=== PATIENT | male | born 1950 | race Caucasian/White ===

== ENCOUNTER → 2025-03-29 | Outpatient (CLI) | payer MEDICARE, SELFPAY ==
--- NOTE | 2025-03-29 13:00 | PROSBIL_PTH ---
PATIENT: FABIANO BRYAN LOC: [facility] U#:[id number] AGE/SX: 74/M ROOM: RE03/29/[address]: Dr. Benjie Chew MD : 1950 BED: DIS: 03/29/2025 SPEC #: [id number] RECD: 03/29/25 14:57 STATUS: NAOMY REQ #: [id number] ROBERTA: 03/29/25 13:[address]: Benjie Chew DEPT: SURGICAL PATHOLOGY RECD BY: George Whitfield ENTERED: 03/30/25 09:37 SP TYPE: PROST BX MARION DR: TIMOTEO Diallo Tissues: A - PROSTATE RIGHT B - PROSTATE RIGHT C - PROSTATE RIGHT D - PROSTATE LEFT E - PROSTATE LEFT F - PROSTATE LEFT Procedures: PROSTATE BX HEADER OPERATION: Prostate biopsy PRE-OP DIAGNOSIS: Elevated PSA TISSUE SUBMITTED: A - Right apex, B - Right mid, C - Right base, D - Left apex, E - Left mid, F - Left base MICROSCOPIC DIAGNOSIS A. Prostate, right, apex, biopsy: - Focal atypical small acinar proliferation. B. Prostate, right, middle, biopsy: - Adenocarcinoma [place] 4+4=8 (cribriform pattern present), involving 2 of 2 cores and 15% of the specimen. C. Prostate, right, base, biopsy: - Adenocarcinoma [place] 4+3=7 (cribriform pattern present), involving 2 of 2 cores and 75% of the specimen. D. Prostate, left, apex, biopsy: - Focal atypical small acinar proliferation. - Mild acute inflammation. E. Prostate, left, middle, biopsy: - Focal atypical small acinar proliferation with mild acute inflammation. F. Prostate, left, base, biopsy: - Focal atypia with mild acute inflammation. MICROSCOPIC DESCRIPTION Slides are reviewed. GROSS DESCRIPTION Received in 6 formalin containers labeled with the patient's name and date of . Designated as: A. RA is a wynne tissue core, 1.3 cm in length by <0.1 cm in diameter. Entirely submitted in 1 cassette. B. RM are 2 wynne tissue cores, both 1.6 cm in length by <0.1 cm in diameter. Entirely submitted in 1 cassette. C. RB are 2 wynne tissue cores, both 1.5 cm in length by <0.1 cm in diameter. Entirely submitted in 1 cassette. D. LA is a wynne tissue core, 1.7 cm in length by <0.1 cm in diameter. Entirely submitted in 1 cassette. E. LM is a wynne tissue core, 1.4 cm in length by <0.1 cm in diameter. Entirely submitted in 1 cassette F. LB is a wynne tissue core, 1.4 cm in length by <0.1 cm in diameter. Entirely submitted in 1 cassette. OR 03/30/2025 CPT:06137e2
== END | disposition home or self-care (01) ==
LOC: LABSPEC 15:55
PROVIDERS: PCP Physician Assistant; Referring Provider Urology; Visit Provider Urology
DX: R97.20 Elevated prostate specific antigen [PSA] (principal)
CPT/HCPCS: 88305; G0416

== ENCOUNTER → 2025-04-06 | Outpatient (CLI) | payer MEDICARE, SELFPAY ==
--- NOTE | 2025-04-06 08:42 | NM_ITS ---
PROCEDURE: BONE SCAN WHOLE BODY 04/06/2025 REASON FOR EXAM: MALIGNANT NEOPLASNT OF PROSTATE TECHNIQUE: Delayed image whole-body bone scan after radiopharmaceutical administration RADIOPHARMACEUTICAL: 26.3 mCi Technetium-99m MDP IV COMPARISON: None provided FINDINGS: Prominent degenerative changes are seen throughout the spine, particularly the thoracolumbar spine, also with associated lumbar levoscoliosis. Degenerative changes are seen of the bilateral wrists and bilateral 1st carpal-metacarpal joints. Asymmetric right knee degenerative changes are seen. Degenerative changes are seen of the bilateral sternoclavicular joints. No findings are seen to suggest the presence of osseous metastatic disease. NM/Bone Scan Whole Body IMPRESSION: 1. No scintigraphic evidence of osseous metastatic disease. 2. Degenerative changes as described. Reading Location: [place] [address]
--- NOTE | 2025-04-06 08:42 | NM_ITS ---
PROCEDURE: BONE SCAN WHOLE BODY 04/06/2025 REASON FOR EXAM: MALIGNANT NEOPLASNT OF PROSTATE TECHNIQUE: Delayed image whole-body bone scan after radiopharmaceutical administration RADIOPHARMACEUTICAL: 26.3 mCi Technetium-99m MDP IV COMPARISON: None provided FINDINGS: Prominent degenerative changes are seen throughout the spine, particularly the thoracolumbar spine, also with associated lumbar levoscoliosis. Degenerative changes are seen of the bilateral wrists and bilateral 1st carpal-metacarpal joints. Asymmetric right knee degenerative changes are seen. Degenerative changes are seen of the bilateral sternoclavicular joints. No findings are seen to suggest the presence of osseous metastatic disease. NM/Bone Scan Whole Body IMPRESSION: 1. No scintigraphic evidence of osseous metastatic disease. 2. Degenerative changes as described. Reading Location: [place] [address]
== END | disposition home or self-care (01) ==
PROVIDERS: PCP Physician Assistant; Referring Provider Urology; Visit Provider Urology
DX: C61 Malignant neoplasm of prostate (principal)
CPT/HCPCS: 78306; A9503

== ENCOUNTER → 2025-04-11 | Outpatient (CLI) | payer MEDICARE, SELFPAY | END | disposition home or self-care (01) | LOC: CT 15:44 | PROVIDERS: PCP Physician Assistant; Referring Provider Urology; Visit Provider Urology | DX: C61 Malignant neoplasm of prostate (principal) | CPT/HCPCS: 74177; Q9967 ==

== ENCOUNTER 2025-05-11 15:07 | Observation (INO) | payer MEDICARE, SELFPAY ==
--- NOTE | 2025-04-29 09:21 | EKG12_ITS ---
Test Reason : PRE OP Blood Pressure : */* mmHG Vent. Rate : 60 BPM Atrial Rate : 60 BPM P-R Int : 176 ms QRS Dur : 74 ms QT Int : 416 ms P-R-T Axes : 70 60 42 degrees QTcB Int : 416 ms Normal sinus rhythm Minimal voltage criteria for LVH, may be normal variant Septal infarct , age undetermined Abnormal ECG Confirmed by KARINA REYNOLDS, SUDHAKAR ([id number]), advertising editor PRITI RIVERA ([id number]) on 05/02/2025 9:44:30 AM Referred By: Benjie Chew Confirmed By: SUDHAKAR COLLINS MD
[2025-04-29 09:55] LABS: Hematocrit 43.0 % (40-54); Hemoglobin 14.6 g/dL (13.0-16.5); Mean Corp Hgb Conc 34.0 g/dL (32-36); Mean Corpuscular Volume 86.2 fL (80-94); Mean Platelet Vol. 8.9 fl (6.2-12.0); Platelet Count 271 K/mm3 (150-450); RBC Distribution Width CV 16.1 % (11.6-14.6); RBC Distribution Width SD 50.5 fl (35.1-43.9); Red Blood Count 4.99 M/mm3 (4.6-6.2); White Blood Count 5.7 K/mm3 (4.4-11.0)
--- NOTE | 2025-04-29 18:35 | PAT.ANE_ITS ---
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 When Was Last Pacemaker Check QUESTION #4 FULL TEXT: You/Your Family Experience fever (hyperthermia) with Anesthesia Last Oral Intake Last Oral intake: Last Oral Intake NPO since Meds taken in AM with sips of water? Meds patient instructed to take am of surgery PONV PONV - child nutrition assistant: PONV - child nutrition assistant Female No 04/27/25 12:53 HX of Motion Sickness No 04/27/25 12:53 HX of N/V After Surgery No 04/27/25 12:53 Non-Smoker Yes 04/27/25 12:53 Duration of Surgery greater Yes 04/27/25 12:53 than 60 minutes Number of Risk Factors 2 04/27/25 12:53 PONV Score Moderate Risk 04/27/25 12:53 Respiratory Assessment Respiratory Assessment - child nutrition assistant: Respiratory Tract Infection Hx - child nutrition assistant Hx Respiratory Tract Infection No 04/27/25 12:53 STOP Sleep Apnea STOP Sleep Apnea - child nutrition assistant: STOP Sleep Apnea - child nutrition assistant Hx Hypertension No 04/27/25 12:53 Hx Sleep Apnea No 04/27/25 12:53 CPAP BIPAP Do you snore loudly (louder No 04/27/25 12:53 than talking or can be heard Do you often feel tired/ No 04/27/25 12:53 fatigued/ sleepy during daytime? Has anyone observed you stop No 04/27/25 12:53 breathing during sleep? STOP Results Negative 04/27/25 12:53 QUESTION #5 FULL TEXT : Do you snore loudly (louder than talking or can be heard through closed doors)? 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 Specify any problems Hx of Preganancy in last 3 N/A 04/27/25 12:53 Months Nurse Filling Out Transfusion VCHRISTIN 04/27/25 12:53 & Questions: Date: 04/27/25 04/27/25 12:53 Time: 12:54 04/27/25 12:53 Patient unable to answer at this time (ie. 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 Former smoker Leg cramps Home Medications ?Medication ?Instructions ?Recorded ?Last Taken ?Type ascorbic acid (vitamin C) 500 mg 1 g PO DAILY 04/27/25 Unknown History tablet (C-500) capsicum-garlic 200 mg-300 mg 1 cap PO DAILY 04/27/25 Unknown History capsule cholecalciferol (vitamin D3) 50 50 mcg PO DAILY Unknown History mcg (2,000 unit) capsule (Vitamin D3) cyanocobalamin-liver extract tablet 1 tab PO DAILY Unknown History ferrous sulfate 325 mg (65 mg 325 mg PO DAILY 04/27/25 Unknown History iron) tablet (FeroSul) magnesium carb,citrate,oxide 400 mg PO DAILY 04/27/25 Unknown History (Magnesium Complex) multivitamin (Daily Multi-Vitamin 1 tab PO DAILY 04/27 Unknown History tablet) rutin 500 mg tablet 500 mg PO DAILY 04/27/25 Unk nown History vitamin K2 90 mcg capsule 90 mcg PO DAILY 04/27/25 Unk nown History zinc gluconate 50 mg tablet 50 mg PO DAILY 04/27/25 Un known History Allergy/AdvReac Type Severity Reaction Status Date / Time aspirin (ASA) Allergy Severe Other Verified 04/27/25 12:40 ibuprofen Allergy Severe Other Verified 04/27/25 12:40 Surgical History (Updated 04/27/25 @ 12:52 by Melva Avalos) Hx of appendectomy Social History Smoking Status: Former smoker Audit: Pertinent Findings Pertinent Findings EKG Perinent findings: April 29, 2025. Normal sinus rhythm. Minimal voltage criteria for LVH. Septal infarct, age undetermined. Recommendation Anesthesia Recommendation Anesthesia recommendation: OPTIMIZED for anesthesia
[2025-05-11] VITALS (17 sets, daily range): BP systolic 140–184; BP diastolic 88–111; PULSE 49–83; RESP 16–20; TEMP 36.4–36.9; O2SAT 95–99; BMI 23.1
--- NOTE | 2025-05-11 09:43 | PCM.PRE.AN2 ---
ASA Classification* ASA Classification ASA Classification: 2 Assessment & Plan Anesthesia* Anesthesia Assessment Anesthesia Assessment: Discussed sedation and/or anesthesia options, risks, benefits, and alternatives with patient/parents/legal guardian/POA. Questions invited. The patient/parents/legal guardian/POA seems to understand and agrees to proceed with anesthesia plan. Reviewed the physical assessment, medical history, allergy history and patient home medications list prior to surgery/procedure/anesthetic and documented any changes. Performed airway and anesthesia risk assessments. Anesthesia Type Anesthesia Type: General Anesthesia Focused Assessment* Airway Assessment Mouth opens: >3 cm Mallampati Score: II Labs Anesthesia Preop lab: CBC WBC 5.7 K/mm3 (4.4-11.0) 04/29/25 09:35 04/29/25 RBC 4.99 M/mm3 (4.6-6.2) 04/29/25 09:35 04/29/25 Hgb 14.6 g/dL (13.0-16.5) 04/29/25 09:35 04/29/25 Hct 43.0 % (40-54) 04/29/25 09:35 04/29/25 Plt Count 271 K/mm3 (150-450) 04/29/25 09:35 04/29/25 CHEMISTRY COAG Pre-Assessment Diagnosis/Proposed Procedure Planned Operative Procedure(s): (B) ROBOTIC RADICAL PROSTATECTOMY, LYMPH NODE DISSECTION, BILATERAL INGENUAL HERNIA REPAIR Anesthesia History 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 When Was Last Pacemaker Check QUESTION #4 FULL TEXT: You/Your Family Experience fever (hyperthermia) with Anesthesia Last Oral Intake Last Oral intake: Last Oral Intake NPO since Meds taken in AM with sips of water? Meds patient instructed to take am of surgery PONV PONV - silk hanger: PONV - silk hanger Female No 07/23/25 12:53 HX of Motion Sickness No 04/27/25 12:53 HX of N/V After Surgery No 04/27/25 12:53 Non-Smoker Yes 04/27/25 12:53 Duration of Surgery greater Yes 04/27/25 12:53 than 60 minutes Number of Risk Factors 2 04/27/25 12:53 PONV Score Moderate Risk 04/27/25 12:53 Respiratory Assessment Respiratory Assessment - silk hanger: Respiratory Tract Infection Hx - silk hanger Hx Respiratory Tract Infection No 04/27/25 12:53 STOP Sleep Apnea STOP Sleep Apnea - silk hanger: STOP Sleep Apnea - silk hanger Hx Hypertension No 04/27/25 12:53 Hx Sleep Apnea No 04/27/25 12:53 CPAP BIPAP Do you snore loudly (louder No 04/27/25 12:53 than talking or can be heard Do you often feel tired/ No 04/27/25 12:53 fatigued/ sleepy during daytime? Has anyone observed you stop No 04/27/25 12:53 breathing during sleep? STOP Results Negative 04/27/25 12:53 QUESTION #5 FULL TEXT : Do you snore loudly (louder than talking or can be heard through closed doors)? 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 Specify any problems Hx of Preganancy in last 3 N/A 04/27/25 12:53 Months Nurse Filling Out Transfusion VCHRISTIN 04/27/25 12:53 & Questions: Date: 04/27/25 04/27/25 12:53 Time: 12:54 04/27/25 12:53 Patient unable to answer at this time (ie. confused, unrespo /Reproduction History /Reproductive History - silk hanger: /Reproductive Hx- silk hanger Hx Now No 04/27/25 12:53 Gestational Age (in weeks): EDC: Hx Hx Para Hx Section SAB No 04/27/25 12:53 Active Medications Active Medications: Current Medications Generic Name Dose Route Start Last Admin Trade Name Freq PRN Reason Stop Dose Admin Cefazolin Sodium 2 gm/ Sodium 110 mls @ 200 mls/hr 05/11/25 11:30 Chloride IV 05/11/25 12:02 INTRAOP ONE Lactated Ringer's 1,000 mls @ 15 mls/hr 05/11/25 09:45 IV .Q48H DANICA PFSH Medical History Wears hearing aid Wears dentures Wears glasses Anemia Easy bruising Excessive bleeding 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 neck Former smoker Leg cramps Home Medications ?Medication ?Instructions ?Recorded ?Last Taken ?Type ascorbic acid (vitamin C) 500 mg 1 g PO DAILY 04/27/25 Unknown History tablet (C-500) capsicum-garlic 200 mg-300 mg 1 cap PO DAILY 04/27/25 Unknown History capsule cholecalciferol (vitamin D3) 50 50 mcg PO DAILY 04/27/25 Unknown History mcg (2,000 unit) capsule (Vitamin D3) cyanocobalamin-liver extract tablet 1 tab PO DAILY 04/27/25 Unknown History ferrous sulfate 325 mg (65 mg 325 mg PO DAILY 04/27/25 Unknown History iron) tablet (FeroSul) magnesium carb,citrate,oxide 400 mg PO DAILY 04/27/25 Unknown History (Magnesium Complex) multivitamin (Daily Multi-Vitamin 1 tab PO DAILY 04/27/25 Unknown History tablet) rutin 500 mg tablet 500 mg PO DAILY 04/27/25 Unknown History vitamin K2 90 mcg capsule 90 mcg PO DAILY 04/27/25 Unknown History zinc gluconate 50 mg tablet 50 mg PO DAILY 04/27/25 Unknown History Allergy/AdvReac Type Severity Reaction Status Date / Time aspirin (ASA) Allergy Severe Other Verified 04/27/25 12:40 ibuprofen Allergy Severe Other Verified 04/27/25 12:40 Surgical History Hx of appendectomy Social History Smoking Status: Former smoker Review of Systems (Anesthesia) ROS Narrative System reviewed and no additional complaints, except as documented.
[2025-05-11] MEDS: Lactated Ringers 1,000 ML 15 ML IV ×2 (10:35→16:32)
--- NOTE | 2025-05-11 11:30 | PROST_PTH ---
PATIENT: FABIANO BRYAN LOC: [facility] U#:[id number] AGE/SX: 74/M ROOM: [id number] RE05/11/[address]: Dr. Benjie Chew MD : 1950 BED: 1 DIS: 05/12/2025 SPEC #: [id number] RECD: 05/11/25 16:53 STATUS: NAOMY SAEED #: [id number] ROBERTA: 05/11/25 11:[address]: Benjie Chew DEPT: SURGICAL PATHOLOGY RECD BY: George Whitfield ENTERED: 05/12/25 09:49 SP TYPE: PROSTATE OTHR DR: MD Rich Allen PA Tissues: A - Soft tissues, NOS B - Lymph node, NOS C - Lymph node, NOS D - Prostate, NOS Procedures: Surgery Specimen Level IV Surgery Specimen Level HEADER OPERATION: Robotic radical prostatectomy, lymph node dissection PRE-OP DIAGNOSIS: Benign prostatic hyperplasia with lower urinary tract symptoms, elevated PSA, nodular prostate with lower urinary tract symptoms TISSUE SUBMITTED: A- Fat over prostate, B- Left pelvic lymph node, C- Right pelvic lymph node, D- Prostate MICROSCOPIC DIAGNOSIS A. Fat, prostate, radical prostatectomy and bilateral pelvic lymphadenectomies: - Benign fibroadipose tissue B. Left pelvic lymph nodes: * Two benign lymph nodes (0/2) C. Right pelvic lymph node: * One benign lymph node (0/1) D. Prostate and bilateral seminal vesicles and vas deferens: * Prostatic adenocarcinoma (See COMMENT for SYNOPTIC REPORT FOR CARCINOMA OF THE PROSTATE) COMMENT SYNOPTIC REPORT FOR CARCINOMA OF THE PROSTATE: Procedure: RADICAL PROSTATECTOMY Histologic type: ACINAR Deana score: 4 + 4 = 8 Grade group (1-5): 4 % pattern 4 in [place] 3+4=7 (na=not applicable): na % tumor: 26% Tumor extent (n=no, y=yes, na=not applicable): Extraprostatic extension (f=focal, m=multifocal): m Location of extraprostatic extension: right seminal vesicle insertion and vas deferens, left seminal vesicle Microscopic invasion of bladder neck: n Seminal vesicle muscle wall invasion: y Margins (n=negative, p=positive, na=not applicable): p Distance of tumor to closest margin (cm): na Longest contiguous positive margin (cm): 0.4 cm (mid right posterior) Positive margin location (apex, bladder neck, mid): right apex, right posterior mid, right lateral mid, right lateral base, and right posterior base Regional lymph nodes (na=not applicable): Number examined: 3 Number positive: 0 Additional findings (lymphovascular invasion, therapy effect): NONE pTNM: pT3b pN0 Comments: NONE Grade Group Definitions 1=[place] 5-6, 2=[place] 3+4=7; 3=Deana 4+3=7, 4=Deana 8; 5=[place] 9-10 Pathologic Staging Definitions (pTNM): Primary Tumor (pT) pT2: Organ confined pT3a: Extraprostatic extension (focal is <1 high power field in 1-2 slides, multifocal is more) or Microscopic invasion of bladder neck (in thick muscle, no adjacent non-neoplastic glands) pT3b: Seminal vesicle muscle wall invasion pT4: Invasion of external sphincter, rectum, bladder, levator muscles or pelvic wall Regional Lymph Nodes (pN) (periprostatic, pelvic, hypogastric, obturator, internal iliac, external iliac, sacral) pNX: Cannot be assessed pN0: No regional lymph node metastasis pN1: Regional lymph node metastasis Distant Metastasis (pM) pM1a: Metastasis in non-regional lymph node (ex: aortic, common iliac, deep/superficial inguinal, retroperitoneal) pM1b: Metastasis in bone pM1c: Metastasis in other distant site The above synoptic report complies, in slightly modified form, with the guidelines of the [employer] [place] [employer] and the Association of Directors of Anatomic and Surgical Pathology for the reporting of cancer specimens MICROSCOPIC DESCRIPTION Slides are reviewed. GROSS DESCRIPTION Received in 4 formalin containers labeled with the patient's name and date of . Designated as: A. Fat over prostate is a 3.0 x 1.4 x 0.4 cm portion of fat containing a possible engorged vessel. Entirely submitted in 1 cassette. B. Left pelvic lymph node is a 2.7 x 1.9 x 0.4 cm portion of fat. Sectioning reveals 2 firm lymph nodes, 0.5 x 0.3 x 0.2 cm and 1.5 x 0.7 x 0.3 cm. Entirely submitted in 1 cassette. C. Right pelvic lymph node is a 2.9 x 2.5 x 0.3 cm portion of fat containing a 1.7 x 0.5 x 0.3 cm firm, possible lymph node. Entirely submitted in 1 cassette. D. Prostate is a 36.9 g radical prostatectomy with attached bilateral adnexa, measuring 4.0 (AP) x 3.9 (AB) x 3.9 (LR) cm. The capsule is somewhat shaggy and focally cauterized. The specimen is inked as follows: Left: GreenRight: BluePosterior: Black The specimen is serially sectioned from apex to base to 7 slices revealing wynne-white, spongy and nodular parenchyma; no distinct lesions are grossly appreciated. The left and right seminal vesicles/vasa deferentia measure as follows:Left vas deferens: 2.7 x 0.4 cmLeft seminal vesicle: 2.2 x 1.3 x 0.7 cmRight vas deferens 2.8 x 0.4 cmRight seminal vesicle: 3.0 x 1.4 x 0.7 cm Upper Tier sections are submitted, sequentially from apex to base as follows: [place]:D1: Slice #1, left apex, radially sectioned (green/black)D2: Slice #1, right apex, radially sectioned (blue/black)D3: Slice #2, left anterior/posterior (green/black)D4: Slice #2, right anterior/posterior (blue/black)Mid:D5: Slice #3, left anterior/posterior (green/black)D6-D7: Slice #3, right anterior (blue)D8-D9: Slice #3, right posterior (black)D10: Slice #4, left anterior/posterior (green/black)D11: Slice #4, right anterior/posterior (blue/black) Base:D12: Slice #5, left anterior/posterior (green/black)D13: Slice #5, right anterior/posterior (blue/black)D14: Slice #6, left posterior with adnexa insertion, perpendicular (black)D15: Slice #6, right anterior (blue)D16: Slice #6, right posterior with adnexa insertion, perpendicular (black)D17-D18: Slice #7, left bladder base (green)D19-D20: Slice #7, right bladder base (blue)D21: Left vas deferens (green/black)D22: Right vas deferens (blue/black)D23: Left seminal vesicle, perpendicular (green/black)D24: Right seminal vesicle, perpendicular (blue/black) [place] 05/12/2025 CPT:30294s3,70159
[2025-05-11] MEDS: Lactated Ringers 1,000 ML 1000 ML IV (11:46)
[2025-05-11] MEDS: Cefazolin 1 GM/5 ML Vial 2 GM IV (11:47)
[2025-05-11] MEDS: Lidocaine 1% (30 ml sdv) 30 ML Vial 50 ML IV (11:51)
[2025-05-11] MEDS: fentaNYL 100 MCG/2 ML Ampul IV (12:09)
--- NOTE | 2025-05-11 15:09 | PCM.DC ---
Discharge Instructions DC O2, CPAP, BIPAP needs Home O2 Discharge instructions: No Dressing / Incision Discharge Activity: Return to Normal Activity and May Not Drive (while taking narcotic pain medications.) Lifting Restrictions: no lifting for 6 weeks Dressing / Incision Call your doctor if you observe: Fever of 101 or Higher Suture Line Care: Avoid Pulling/Pushing and Avoid Pinching/Bending Cleanse incision/area with: Soap & Water Catheter: [place] to leg bag Drain: [place] Additional Dressing/Incision Instructions:: no lifting more 10 lbs for 6 weeks Follow Up Care Please Follow Up With: Benjie Chew MD When: Call [phone] for an appointment Test Results: Test results from this visit will be discussed in further detail at your follow-up appointment, if applicable. Discharge Plan Admission Primary Reason for Your Visit: Radical prostatectomy Attending Provider: Benjie Chew Primary Care Provider: Rich Cabrera Consulting Providers: Leif Gonzalez Instructions Patient Instructions: Radical Prostatectomy, Radical Prostatectomy Dc Print Language: Jamaican Discharge Orders/Prescriptions Prescriptions: New docusate sodium [Colace] 100 mg capsule 100 mg PO BID Qty: 20 0RF ciprofloxacin HCl 500 mg tablet 500 mg PO BID Qty: 20 0RF oxycodone 5 mg tablet 5 mg PO Q6H PRN (Reason: pain) 3 Days Qty: 10 0RF Continued ascorbic acid (vitamin C) [C-500] 500 mg tablet 1 g PO DAILY vitamin K2 90 mcg capsule 90 mcg PO DAILY rutin 500 mg tablet 500 mg PO DAILY cholecalciferol (vitamin D3) [Vitamin D3] 50 mcg (2,000 unit) capsule 50 mcg PO DAILY zinc gluconate 50 mg tablet 50 mg PO DAILY cyanocobalamin-liver extract Tablet 1 tab PO DAILY multivitamin [Daily Multi-Vitamin] Tablet 1 tab PO DAILY Magnesium Complex 300 mg magnesium tablet 400 mg PO DAILY ferrous sulfate [FeroSul] 325 mg (65 mg iron) tablet 325 mg PO DAILY capsicum (cayenne) [Cayenne PDR] PO BID Referrals / Follow Up: Benjie Chew MD [Med Staff - Active Staff] - Rich Cabrera PA [Primary Care Provider] - Disposition Disposition (needs filled in before D/C Order can be placed): Home, Self Care
--- NOTE | 2025-05-11 15:10 | OP.PCM_ITS ---
Operative Report (Standard) Operative Information Date of Procedure: 05/11/25 Pre-Operative Diagnosis: Prostate cancer and bilateral inguinal hernias Post-Operative Diagnosis: The same Surgery/Procedure Performed: Laparoscopic robotic assisted radical pr ostatectomy, complete pelvic lymph node dissection, bilateral inguinal hernia repair physician practice coordinator: No Type of Anesthesia: General RN Documented Start/Stop Times: Operation Date: 05/11/25 11:30 Case Time Into Pre-Op 05/11/25 09:33 Out of Pre-Op 05/11/25 11:40 Anesthesia Start 05/11/25 11:46 Into Room 05/11/25 11:46 Procedure Start 05/11/25 12:09 Procedure End 05/11/25 15:03 Procedure Start Time: 12:09 Procedure Stop Time: 15:03 Select all DRAINS/GRAFTS/IMPLANTS that apply: Drains Drain details: 18 fr mills Estimated Blood Loss: 200 Specimen collected: Yes Description of specimen(s) removed: Prostate and lymph nodes Description of surgery: Patient presented to the hospital for treatment of his prostate cancer with radical prostatectomy. In the preoperative setting we discussed the options of management for his prostate cancer including active surveillance, radiation treatments, radioactive seeds, and radical robotic prostatectomy. We discussed the side effects of surgery including the potential to lose erections. We discussed the potential to have bladder control problems with stress incontinence which can be temporary or permanent. We discussed the risk of the surgery including the risk of general anesthetic, risk of bleeding, risk of infection, and risk of formation of hernia either incisional hernia or inguinal hernia. After long discussion with the patient the preoperative setting and also reviewed this in the preop area patient signed the consent form and we proceeded with a radical prostatectomy. Patient was taken back to the operating room he was identified, time out procedure was performed and he was placed supine on the table he underwent general anesthesia with intubation. The abdomen was shaved prepped and draped in usual sterile fashion as well as the penis and testicles. A 16 German catheter was placed into the bladder with clear return of urine. I then made an incision in the umbilicus and dissected down to the fascia advance a Veress needle into the peritoneal cavity and insufflated the peritoneal cavity with CO2 gas. I then placed a 12 mm trocar above the umbilicus. I then visualized the placement of the rest of the trochars, I placed a right arm robotic trocar, and air seal trocar, a suction port 5 mm trocar. And on the left side I placed 2 robotic arms. Once all the trochars were in placed the patient was put in steep Trendelenburg. And the robot was docked the arms were docked and then I placed the 0 degree camera through the robotic arm and also used a 30 degree camera during certain parts of the case. I used scissors in the right arm, prograsp in the third arm, and a bipolar in the second arm. Initial dissection was to free the sigmoid colon off the lateral wall this was done by meticulously dissecting off the peritoneum and the sigmoid colon off the left lateral wall. This then allowed the prograsp to retract the sigmoid colon out of the pelvis. I then went below the bladder and identified the vas deferens incised the peritoneum over the vas deferens and traced the vas deferens below the bladder to the prostate and identified the right and left vasa deferens. Below behind the vas deferens then the seminal vesicles were identified. I then dissected the seminal vesicle free using pinpoint electrocautery and then we identified the other seminal vesicle and then dissected this using pinpoint electrocautery I then elevated the vas deferens and several vesicles off the prostate and was able to sweep the Denonvilliers' fascia off the prostate posteriorly all the way up to the apex of the prostate. Working laterally I made sure I went as lateral as possible to sweep the Denonilliers' fascia off the posterior aspect of the prostate and worked my way back, I then transected the vas deferens and the left and right side the seminal vesicles were then dissected free. And then I pulled out of the pelvis. At this point the bladder was dropped creating the space of Retzius with the bladder on traction with the fourth arm. Using electrocautery I dissected in the anterior peritoneal fascia and then created the space of Retzius dissecting towards the prostate. The a total bilateral pelvic lymph node dissection was then performed. The right pelvic lymph nodes the nodes that were taken on the right side extended from the right iliac artery lateral pelvic sidewall up to the junction of the artery and the lymph nodes and down to the obturator nerve and then also below the operator specialist communications nerve all the lymph nodes were removed during to remove those lymph nodes we used clips and electrocautery to control small blood vessels and also the control lymphatic. I then went to the left side and again did an extensive lymph node dissection starting of the left iliac artery extending the left iliac vein on the lateral sidewall down to the obturator nerve and the left side beyond the operator specialist communications nerve down further behind it cleaning out all the lymphatic tissue all this tissue was sent off as a specimen we use clips and electrocautery during the dissection. At the end we cleaned out all the lymphatic tissue on the right pelvic wall and all the lymphatic tissue in the left pelvic wall. The prostate was then cleaned of the fat over the prostate and the fourth arm was used to retract the bladder and place traction. I then identified the endopelvic fascia that was overlying the prostate on the right side I incised endopelvic fascia and wwept the levator muscles off the prostate all the way to the apex on the right side, I then worked my way anterior to the prostate then transected to the puboprostatic ligament and the underlying dorsal vein complex was not injured. I then went to the other side and identified the endopelvic fascia in the left side incised in a fashion the left side and swept the levator muscles off the prostate on the left side all the way up to the apex the puboprostatic ligament on the left side was then dissected and transected I then freed up the fascia overlying the dorsal vein complex. I then used the prograsp to encircled the dorsal vein complex with the prograsp and then switched over to the right and left needle log driver and suture ligated the dorsal vein complex above the prograsp. The prograsp was then placed back in the bladder and put back on traction I then identified the junction between the bladder and the prostate and dissected down between the bladder and the prostate untilI came across the catheter we then dissected posteriorly to the bladder and prostate to free the prostate and the bladder off each other and the muscles between the bladder and the prostate was then cauterized to free up the bladder. I then w ent on top of the prostate and identified the endopelvic fascia on top of the prostate this was incised all the way to the apex and then we swept the endopelvic fascia off the prostate laterally and then identified the plane between endopelvic fascia and the prosthetic pseudocapsule and swept the fascia laterally until reaching the course of the neurovascular bundles and then released the neurovascular bundles off the prostate laterally all the way back in a retrograde fashion back to the junction of the pedicles then the prostate was placed on traction with the fourth arm pulling the prostate laterally identified the pedicle to the prostate between the seminal vesicles and the and the neurovascular bundle and this was taken using sequential small hemolocks. After the pedicle was taken the I then dissected underneath the prostate sweeping the neurovascular bundle off the prostate we able to follow the nice smooth plane between the neurovascular bundle and the pseudocapsule all the way to the apex once this was identified we swept this up all the way up to the apex and there was perfect nerve sparing on the right side. Then went to the left side the prostate identified the endopelvic fascia over the left side of the prostate I incised the endopelvic fascia all the way to the apex and then swept this off laterally I then released the neurovascular bundles on the left side of the prostate sweeping him off the prostate laterally I then elevated the prostate up up with the prostate and traction identified the pedicle to the prostate on the left side and then the pedicles taken with sequential Hem-o-jenaro clips I then was able to dissected the neurovascular bundle off the left posterior aspect the prostate this was a perfect dissection all the way up on the left side following the pseudocapsule all the way up the left side until we reached the apex of the prostate. After the both the neurovascular bundles has been swept off the posterior to the prostate I then went above and transected the dorsal vein complex there was minimal to no bleeding but then dissected down to the urethra and circumfencial dissected around the urethra I then switched the right and left arm with the needle drivers and I suture-ligated the dorsal vein complex again just to ensure that there was no bleeding from the dorsal vein complex. I then transected through the urethra with scissors and the prostate was then freed and released off the prostate bed and put an Endo Catch bag. At this point the bladder neck was reconstructed and then an anastomosis was performed between the prostate and the bladder with a 3 oh V-Loc stitch in a running fashion starting from the bladder neck at the 6 o'clock position working to the 12 o'clock position with continuous stitches to complete a perfect anastomosis between the bladder and the prostate. I then placed a new catheter into the bladder, an 18 German [place] tip catheter flushed the bladder and there was no leakage from the anastomosis I put 10 cc in the balloon and pulled it up pulled back gently. I then proceeded with the hernia repair, during the bladder dissection of the bladder neck dissection both the left and right inguinal sacs were dissected completely free from the hernia he had large direct inguinal hernias. I then used a large mesh and I laid the mesh down on top of the defect the mesh covered both the left and right inguinal hernias crossing the midline all the way I then used a 2 oh V-Loc stitch to secure the mesh to Toby's ligament on the anterior portion posterior portion and all the way across to also to the pubic bone the mesh was then secured I then used the 2 oh V-Loc stitch to then reattach the peritoneum and the bladder flap back up and the hernia and back up and the mesh to completely cover it once the bladder flap and peritoneum was covering the mesh defect then we proceeded with the extraction of the prostate. I then ensured that there was no bleeding from the dorsal vein complex no bl eeding from the neurovascular bundles FloSeal was placed as necessary once hemostasis was ensured and adequate then I placed the bladder back in position in the pelvis the prostate was exchanged to the camera port I closed the air seal port with a 10 12 Fleiciano Ahumada stitch. And the extracted the prostate through the umbilicus. The robot was undocked all the ports were removed under direct visualization then closed the extraction site with 0 Vicryl with a CT1 needle once the extraction site was closed. I then closed all the incision with subcuticular stitches with 4-0 Monocryl and then bandages were placed on the incisions catheter was flushed to make sure it was draining well there was no clots and it was crystal clear patient's anesthetic was reversed he was extubated and taken back to the PACU in stable condition all the needles and sponges and instruments were accounted for. Blood loss was minimal and the drain was a 18 [place] catheter. No other surgical drain was left. I was present during the entire case. The role of the communication consultant WOMEN'S STUDIES PROFESSOR, assisted with myself during the entire procedure, the WOMEN'S STUDIES PROFESSOR assisted by passing instruments through the air seal port, passing suture, needles, sponges during the surgery. The RFA also assisted with providing some suction using the suction irrigation and some irrigation during the surgery. Also the assistant business manager provided some traction minorly during the dissection of the prostate and the seminal vesicles. The RFA also helped me extract the prostate at the end of the case and helped close the fascia, and the assistant business manager also helped close the skin incisions with subcuticular stitches. The assistant business manager was monitored closely and under my direct supervision the entire case. Surgical Findings: Very good nerve sparing on the right side left side partial nerve-sparing was really stuck prostate taken out lymph nodes look negative bilateral inguinal hernia repair done Complications Complications: No Admit VTE Documentation VTE Present on Admission: No VTE Mechan Device Prophylaxis: SCD's VTE Pharm Prophylaxis ordered?: No
--- NOTE | 2025-05-11 15:32 | PCM.POST.ANE ---
Anesthesia: Postop Eval I Current Vital Signs Temperature: 97.8 F Pulse Rate: 82 Blood Pressure: 174/89 Respiratory Rate: 16 Pulse Ox: 97 Oxygen Delivery Method: Nasal Cannula Oxygen Flow Rate (L/min): 3 Assessment Airway patent: Yes Spontaneous unlabored respirations: Yes Mental status: Awake and Calm nausea: No Vomiting: No Anesthesia Complication: No Fluid Hydration Crystalloid volume administer (ml): 800 Total IV fluid infused: 800 Progress Note Anesthesia document: Postop Eval 1 completed: Yes
--- NOTE | 2025-05-11 15:43 | POSTOPAN2_ITS ---
Anesthesia Postop Eval I Sum Postop Eval Completion status Anesthesia document: Postop Eval 1 completed: Yes Anesthesia Postop Eval I Summary Anesthesia Postop Eval I Summary: Anesthesia Postop Eval I: Assessment Summary Airway patent Yes 05/11/25 15:33 DIRECTOR [email or web address].[email or web address] Spontaneous unlabored Yes 05/11/25 15:33 DIRECTOR REPORT.CA respirations Mental status Awake,Calm 05/11/25 15:33 DIRECTOR REPORT.[email or web address] nausea No 05/11/25 15:33 DIRECTOR REPORT.SJAN Vomiting No 05/11/25 15:33 DIRECTOR REPORT.SJJEAN-PAUL Anesthesia Postop Eval I: Fluid Summary Crystalloid volume administer 800 05/11/25 15:33 DIRECTOR REPORT.SJAN (ml) Colloids volume administered ( ml) Blood Product volume administered (ml) Total IV fluid infused 800 05/11/25 15:33 DIRECTOR REPORT.CA Anesthesia Postop Eval I: Summary Notes Anesthesia Complication No 05/11/25 15:33 DIRECTOR REPORT.CA Anesthesia Complication Comment: Post-operative progress note Anesthesia: Postop Eval II Evaluation Mental status: Awake Pain Level: 1 nausea: No Vomiting: No Progress Note Post-operative progress note: Patient has some bleeding on top of head. We are not aware of any trauma. Dr. Chew looked at the area. He is putting a dressing on it and did not feel that labs need to be drawn. He said he would observe it over night.
--- NOTE | 2025-05-11 15:43 | PCM.POSTANE2 ---
Anesthesia Postop Eval I Sum Postop Eval Completion status Anesthesia document: Postop Eval 1 completed: Yes Anesthesia Postop Eval I Summary Anesthesia Postop Eval I Summary: Anesthesia Postop Eval I: Assessment Summary Airway patent Yes 05/11/25 15:33 ELEVATOR TENDER.[email or web address] Spontaneous unlabored Yes 05/11/25 15:33 ELEVATOR TENDER.CA respirations Mental status Awake,Calm 05/11/25 15:33 ELEVATOR TENDER.SJAN nausea No 05/11/25 15:33 ELEVATOR TENDER.SJAN Vomiting No 05/11/25 15:33 ELEVATOR TENDER.SJJEAN-PAUL Anesthesia Postop Eval I: Fluid Summary Crystalloid volume administer 800 05/11/25 15:33 ELEVATOR TENDER.SJAN (ml) Colloids volume administered ( ml) Blood Product volume administered (ml) Total IV fluid infused 800 05/11/25 15:33 ELEVATOR TENDER.CA Anesthesia Postop Eval I: Summary Notes Anesthesia Complication No 05/11/25 15:33 ELEVATOR TENDER.CA Anesthesia Complication Comment: Post-operative progress note Anesthesia: Postop Eval II Evaluation Mental status: Awake Pain Level: 1 nausea: No Vomiting: No Progress Note Post-operative progress note: Patient has some bleeding on top of head. We are not aware of any trauma. Dr. Chew looked at the area. He is putting a dressing on it and did not feel that labs need to be drawn. He said he would observe it over night.
--- NOTE | 2025-05-11 17:23 | EKG12_ITS ---
Test Reason : POSTOP Blood Pressure : */* mmHG Vent. Rate : 70 BPM Atrial Rate : 70 BPM P-R Int : 172 ms QRS Dur : 88 ms QT Int : 420 ms P-R-T Axes : 63 42 21 degrees QTcB Int : 453 ms Normal sinus rhythm with sinus arrhythmia Minimal voltage criteria for LVH, may be normal variant ( Sokolow-Murillo ) Septal infarct (cited on or before 29-Apr-2025) Abnormal ECG When compared with ECG of 29-Apr-2025 09:26, Nonspecific T wave abnormality no longer evident in Lateral leads Confirmed by KARINA REYNOLDS, SUDHAKAR ([id number]), trash truck driver REGINA FRY ([id number]) on 05/13/2025 5:55:07 AM Referred By: Benjie Chew Confirmed By: SUDHAKAR COLLINS MD
[2025-05-11] MEDS: 0.9% Normal Saline (1000mL) 1,000 ML 125 ML IV (18:39)
[2025-05-12] VITALS: BP 146/91; PULSE 62; RESP 18; TEMP 37.1; O2SAT 98
[2025-05-12] MEDS: 0.9% Normal Saline (1000mL) 1,000 ML 125 ML IV (02:35)
[2025-05-12 04:30] VITALS: BP 173/97; PULSE 62; RESP 19; TEMP 36.7; O2SAT 98
[2025-05-12 07:18] LABS: Hematocrit 33.9 % (40-54); Hemoglobin 11.7 g/dL (13.0-16.5); Immature Granulocytes Count 0.030 X10^3/uL (0.0-0.0); Mean Corp Hgb Conc 34.5 g/dL (32-36); Mean Corpuscular Volume 86.9 fL (80-94); Mean Platelet Vol. 9.2 fl (6.2-12.0); NRBC Flagged by Analyzer 0 % (0-5); POSITIVE DIFFERENTIAL YES; Platelet Count 238 K/mm3 (150-450); RBC Distribution Width CV 14.6 % (11.6-14.6); RBC Distribution Width SD 45.2 fl (35.1-43.9); Red Blood Count 3.90 M/mm3 (4.6-6.2); White Blood Count 8.9 K/mm3 (4.4-11.0)
--- NOTE | 2025-05-12 07:25 | PCM.DC.SUM ---
Providers Date of Admission: 05/11/25 Date of Discharge: 05/12/25 Primary Care Physician: TIMOTEO Diallo Reason For Visit: 05/11/25 11:35 ROBOTIC RADICAL PROSTATECTOMY, LYMP Medications at Discharge Home Medications ascorbic acid (vitamin C) 500 mg tablet (C-500) 1 g PO DAILY 04/27/25 cholecalciferol (vitamin D3) 50 mcg (2,000 unit) capsule (Vitamin D3) 50 mcg PO DAILY 04/27/25 cyanocobalamin-liver extract tablet 1 tab PO DAILY 04/27/25 ferrous sulfate 325 mg (65 mg iron) tablet (FeroSul) 325 mg PO DAILY 04/27/25 magnesium carb,citrate,oxide (Magnesium Complex) 400 mg PO DAILY 04/27/25 multivitamin (Daily Multi-Vitamin tablet) 1 tab PO DAILY 04/27/25 rutin 500 mg tablet 500 mg PO DAILY 04/27/25 vitamin K2 90 mcg capsule 90 mcg PO DAILY 04/27/25 zinc gluconate 50 mg tablet 50 mg PO DAILY 04/27/25 capsicum (cayenne) PO BID bleeding 05/11/25 ciprofloxacin HCl 500 mg tablet 500 mg PO BID #20 tabs 05/11/25 docusate sodium 100 mg capsule (Colace) 100 mg PO BID #20 caps 05/11/25 oxycodone 5 mg tablet 5 mg PO Q6H PRN pain 3 days #10 tabs 05/11/25 Hospital Course Operations - (Radical prostatectomy) Weight / BMI Weight Weight: 69 kg Body Mass Index (BMI) 23.1 ABG / Lab / Microbiology Data 05/12/25 07:00 05/12/25 07:00 Laboratory: Laboratory Results - last 24 hr 05/12/25 07:00: WBC 8.9, RBC 3.90 L, Hgb 11.7 L, Hct 33.9 L, MCV 86.9, MCH 30.0, MCHC 34.5, RDW Std Deviation 45.2 H, RDW Coeff of Ronaldo 14.6, Plt Count 238, MPV 9.2, Immature Gran % (Auto) 0.300, Neut % (Auto) 79.0 H, Lymph % (Auto) 6.4 L, [place] % (Auto) 14.1 H, Eos % (Auto) 0.0, Baso % (Auto) 0.2, Absolute Neuts (auto) 7.0, Absolute Lymphs (auto) 0.57 L, Nucleated RBC % 0 D/C Instructions Call your doctor if you observe: Fever of 101 or Higher Suture Line Care: Avoid Pulling/Pushing and Avoid Pinching/Bending Cleanse incision/area with: Soap & Water Catheter: Cortez to leg bag Drain: [place] Additional Dressing/Incision Instructions: no lifting more 10 lbs for 6 weeks DC O2, CPAP, BIPAP Needs Home O2 Discharge instructions: No Please Follow Up With: Benjie Chew MD When: Call [phone] for an appointment Meaningful Use Info Meaningful Use Meaningful Use Diagnoses (Choose all that apply): None applicable Discharge Plan Admission Admit Date/Time: 05/11/25 15:07 Primary Reason for Your Visit: Radical prostatectomy Attending Provider: Benjie Chew Primary Care Provider: Rich Cabrera Consulting Providers: Leif Gonzalez Instructions Patient Instructions: Radical Prostatectomy, Radical Prostatectomy Dc Discharge Orders/Prescriptions Prescriptions: New docusate sodium [Colace] 100 mg capsule 100 mg PO BID Qty: 20 0RF ciprofloxacin HCl 500 mg tablet 500 mg PO BID Qty: 20 0RF oxycodone 5 mg tablet 5 mg PO Q6H PRN (Reason: pain) 3 Days Qty: 10 0RF Continued ascorbic acid (vitamin C) [C-500] 500 mg tablet 1 g PO DAILY vitamin K2 90 mcg capsule 90 mcg PO DAILY rutin 500 mg tablet 500 mg PO DAILY cholecalciferol (vitamin D3) [Vitamin D3] 50 mcg (2,000 unit) capsule 50 mcg PO DAILY zinc gluconate 50 mg tablet 50 mg PO DAILY cyanocobalamin-liver extract Tablet 1 tab PO DAILY multivitamin [Daily Multi-Vitamin] Tablet 1 tab PO DAILY Magnesium Complex 300 mg magnesium tablet 400 mg PO DAILY ferrous sulfate [FeroSul] 325 mg (65 mg iron) tablet 325 mg PO DAILY capsicum (cayenne) [Cayenne PDR] PO BID Referrals / Follow Up: Benjie Chew MD [Med Staff - Active Staff] - Rich Cabrera PA [Primary Care Provider] - Disposition Discharge Orders: Discharge Patient (Routine); Ordered 05/12/25 Ordered By: Dr. Benjie Chew
[2025-05-12 07:47] LABS: Anion Gap 11 (5-15); BUN 21 mg/dL (4-19); BUN/Creat Ratio 22.4 RATIO (10-20); Calcium,Total 8.2 mg/dL (7.6-11.0); Carbon Dioxide 20.1 mmol/L (21.0-32.0); Chloride 104 mmol/L (98-108); Estimated Creatinine Clearance 69.46 ml/min (50-250); Glucose 137 mg/dL (70-99); Potassium 4.4 mmol/L (3.3-5.1)
[2025-05-12 08:05] VITALS: BP 171/97; PULSE 76; RESP 18; TEMP 36.5; O2SAT 95
[2025-05-12 09:45] VITALS: BP 171/97; PULSE 76
--- NOTE | 2025-05-12 10:29 | CASEMGMT ---
Pt has an order for DC placed. ILENE CM to the pt room at this time to discuss DC planning. Pt's at bedside. Pt reports that he lives with his and that he feels safe returning home today with her assistance. Pt states that his daughter will be driving them home today. Pt reports that he has been given education regarding Cortez catheter care. 6-Click score is 22. Pt's states that they have access to a cane and FWW if needed. At this time, awaiting pt's BP to stabilize prior to DC. Pt plans to follow up with urology as an OP. No further needs identified at this time.
[2025-05-12 10:55] VITALS: BP 140/87; PULSE 84; RESP 18; TEMP 36.4; O2SAT 97
== END 2025-05-12 13:47 | disposition home or self-care (01) ==
LOC: SDC 15:21 → MS3 15:21
PROVIDERS: Anesthesiology; Admitting Provider Urology; PCP Physician Assistant; Referring Provider Urology; Visit Provider Urology
PROC: 0VT04ZZ Resection of Prostate, Percutaneous Endoscopic Approach (ICD-10-PCS; CPT 55866; principal; 2025-05-11 11:10)
DX: C61 Malignant neoplasm of prostate (principal); K40.20 Bilateral inguinal hernia, without obstruction or gangrene, not specified as recurrent; Z87.891 Personal history of nicotine dependence; R97.20 Elevated prostate specific antigen [PSA]; N40.3 Nodular prostate with lower urinary tract symptoms
CPT/HCPCS: 55866; 38571; 00865; 49650; S2900; 36415; 80048; 85025; 85027; 86850; 86900; 86901; 88305; 88309; 93005; 94668; 96360; 96361; 99221; C1781; A4216; G0378; J2405

== ENCOUNTER → 2025-05-24 | Outpatient (CLI) | payer MEDICARE, SELFPAY ==
--- NOTE | 2025-05-24 07:53 | CT_ITS ---
PROCEDURE: CT ABD/PELVIS W/WO CONTRAST 05/24/2025 REASON FOR EXAM: PELVIC AND PERINEAL PAIN Hematuria. Recent prostatectomy due to prostate cancer. TECHNIQUE: CT ABD/PELVIS W/WO CONTRAST Coronal and Sagittal reconstruction series were provided. CONTRAST: Isovue 3 7 VOLUME: 100 mL One or more dose reduction techniques were used (e.g., Automated exposure control, adjustment of the mA and/or kV according to patient size, use of iterative reconstruction technique. RADIATION DOSE SUMMARY: CTDlvol: 19.6 mGy DLP: 2226.58 mGycm COMPARISON: Prior study dated April 11, 2025. FINDINGS: Lung bases: Minimal atelectasis and/or scarring in the right middle lobe. Calcified granuloma in the left lower lobe. Liver: Diffuse fatty infiltration. Stable 12.5 mm cyst in the posterior medial aspect of the right lobe of the liver. Gallbladder: Gallbladder is unremarkable. Spleen: Calcified splenic granulomas. Pancreas: Normal size without evidence of mass surrounding inflammation or ductal dilation. Adrenals: Unremarkable Kidneys: Stable 8.7 mm cyst in the posterior aspect of the left kidney. Stable 2 cm cyst in the posterior midportion of the right kidney. Once again, small parapelvic cysts are seen in the left kidney. Bladder: Diffuse bladder wall thickening. An air-fluid level is seen within the urinary bladder most likely due to recent Cortez removal. The patient is status post prostatectomy. There is evidence of free fluid in the pelvis. Soft tissue density is seen within the free fluid and this most likely represents postoperative hematoma within the pelvis. There is also evidence of free fluid and soft tissue prominence in the right side of the pelvis. There is diffuse scrotal thickening and bilateral hydroceles worse on the right side. Bowel: Colonic diverticulosis without diverticulitis. Appendix: The appendix is not identified. There is no inflammatory process identified in the right lower quadrant to suggest appendicitis. Lymph nodes: No suspicious lymph node enlargement. Vasculature: Mild diffuse atherosclerotic calcifications are noted. Bones: Degenerative changes of the spine.4 CT/CT Abd/Pelvis W/WO Contrast IMPRESSION: Status post prostatectomy with fluid in the pelvis with soft tissue density wit hin the fluid suggestive of hematoma. Postoperative changes are seen within the peritoneal fat. Diffuse bladder wall thickening. Possible hematoma in the right side of the pelvis. Bilateral scrotal thickening with bilateral hydroceles worse on the right side. Reading Location: [id number]
== END | disposition home or self-care (01) ==
PROVIDERS: PCP Physician Assistant; Referring Provider Urology; Visit Provider Urology
DX: R10.2 Pelvic and perineal pain (principal); R50.9 Fever, unspecified
CPT/HCPCS: 74178; Q9967

== ENCOUNTER → 2025-06-30 | Outpatient (CLI) | payer MEDICARE, SELFPAY ==
[2025-06-30 13:17] LABS: PSA,Total- Diagnostic 0.37 ng/mL (0.00-4.00)
== END | disposition home or self-care (01) ==
LOC: LAB 10:34
PROVIDERS: PCP Physician Assistant; Referring Provider Urology; Visit Provider Urology
DX: C61 Malignant neoplasm of prostate (principal)
CPT/HCPCS: 36415; 84153

== ENCOUNTER → 2025-09-22 | Outpatient (CLI) | payer MEDICARE, SELFPAY ==
[2025-09-22 16:57] LABS: Hematocrit 39.5 % (40-54); Hemoglobin 12.5 g/dL (13.0-16.5); Mean Corp Hgb Conc 31.6 g/dL (32-36); Mean Corpuscular Volume 89.6 fL (80-94); Mean Platelet Vol. 9.3 fl (6.2-12.0); Platelet Count 395 K/mm3 (150-450); RBC Distribution Width CV 13.9 % (11.6-14.6); RBC Distribution Width SD 45.1 fl (35.1-43.9); Red Blood Count 4.41 M/mm3 (4.6-6.2); White Blood Count 6.7 K/mm3 (4.4-11.0)
[2025-09-22 18:27] LABS: PSA,Total- Diagnostic 0.62 ng/mL (0.00-4.00)
[2025-09-22 18:28] LABS: Ferritin 56 ng/mL (37-417); Iron 73 ug/dL (65-175); Iron Binding Capacity,Total 386 ug/dL (250-450); Iron Binding Capacity,Unsat 313 ug/dL (228-428)
== END | disposition home or self-care (01) ==
PROVIDERS: Urology; PCP Physician Assistant
DX: D50.0 Iron deficiency anemia secondary to blood loss (chronic) (principal); C61 Malignant neoplasm of prostate
CPT/HCPCS: 36415; 82728; 83540; 83550; 84153; 85027